=== PATIENT | female | born 2000 | race American Indian/Alaskan Native ===

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

== ENCOUNTER 2019-09-01 08:24 | Outpatient (CLI) | payer MEDICAID ==
[2019-09-01 08:43] VITALS: BP 124/70
[2019-09-01] MEDS ORDERED: LACTATED RINGERS 1,000 ML IV ONE (08:46)
[2019-09-01] MEDS ORDERED: TERBUTALINE 1 MG/1 ML INJ SUB-Q SCH (09:00)
[2019-09-01 09:16] LABS: Bacteria,Urine 3+ /HPF (Negative); Bilirubin,Urine NEG (Negative); Blood,Urine NEG (Negative); Color,Urine Yellow (Yellow); Mucus,Urine 2+ /HPF; Urobilinogen,Urine < 2.0 mg/dL (<2.0)
[2019-09-01] MEDS ORDERED: cefTRIAXone/NS 1 GM/50 ML 1 GM/50 ML BAG IV ONE (11:15)
== END 2019-09-01 11:21 | disposition home or self-care (01) ==
LOC: TRG 08:24
PROVIDERS: ATTEND Obstetrics & Gynecology
DX: O26.893 Other specified pregnancy related conditions, third trimester (principal); R25.2 Cramp and spasm; O47.03 False labor before 37 completed weeks of gestation, third trimester; Z3A.34 34 weeks gestation of pregnancy
CPT/HCPCS: 59025; 81001; 87086; 96361; 96365; J0696; J7120; 96360

== ENCOUNTER 2019-09-15 10:06 | Outpatient (CLI) | payer MEDICAID ==
[2019-09-15 10:41] VITALS: BP 136/63
[2019-09-15 11:28] LABS: Bacteria,Urine 2+ /HPF (Negative); Bilirubin,Urine NEG (Negative); Blood,Urine NEG (Negative); Color,Urine Yellow (Yellow); Mucus,Urine 3+ /HPF
[2019-09-15] MEDS ORDERED: LACTATED RINGERS 1,000 ML IV SCH (12:00)
[2019-09-15] MEDS ORDERED: cefTRIAXone/NS 1 GM/50 ML 1 GM/50 ML BAG IV SCH (12:44)
== END 2019-09-15 13:35 | disposition left against medical advice (07) ==
LOC: TRG 10:06
PROVIDERS: ATTEND Obstetrics & Gynecology
DX: O26.893 Other specified pregnancy related conditions, third trimester (principal); M54.2 Cervicalgia; Z3A.36 36 weeks gestation of pregnancy
CPT/HCPCS: 59025; 81001; J0696

== ENCOUNTER 2019-10-27 15:20 | Emergency (ER) | payer MEDICAID ==
[2019-10-27 15:46] VITALS: BP 121/61
--- NOTE | 2019-10-27 15:49 | Event Note ---
ED Screening Note Date of service: 10/27/19 Time: 15:45 ED Screening Note: 19 y s/p on 10/08/19 was sent here by [facility] for post depression Denies SI/HI This initial assessment/diagnostic orders/clinical plan/treatment(s) is/are subject to change based on patients health status, clinical progression and re- assessment by fellow clinical providers in the ED. Further treatment and workup at subsequent clinical providers discretion. Patient/guardian urged not to elope from the ED as their condition may be serious if not clinically assessed and managed. Initial orders include: psych ecal main ed
[2019-10-27 16:28] LABS: Bacteria,Urine 2+ /HPF (Negative); Bilirubin,Urine NEG (Negative); Blood,Urine LG (Negative); Color,Urine Yellow (Yellow); Urobilinogen,Urine < 2.0 mg/dL (<2.0)
[2019-10-27 16:30] LABS: WBC,Urine > 182.0 /HPF (0.0-6.0)
[2019-10-27 16:34] LABS: Amphetamine Screen,Urine PRESUMPTIVE NEGATIVE; Benzodiazepines Screen,Urine PRESUMPTIVE NEGATIVE; Cannabinoid Screen,Urine PRESUMPTIVE NEGATIVE; Cocaine Screen,Urine PRESUMPTIVE NEGATIVE; Methadone Screen,Urine PRESUMPTIVE NEGATIVE; Opiate Screen,Urine PRESUMPTIVE NEGATIVE
[2019-10-27 16:46] LABS: Basophils # (Auto) 0.1 K/mm3 (0.0-0.1); Eosinophils # (Auto) 0.2 K/mm3 (0.0-0.4); Eosinophils % (Auto) 1.7 % (0.0-4.3); Hemoglobin 12.6 gm/dl (10.1-14.3); Lymphocytes # (Auto) 1.8 K/mm3 (1.2-5.4); Lymphocytes % (Auto) 18.7 % (13.4-35.0); Monocytes # (Auto) 0.6 K/mm3 (0.0-0.8); Monocytes % (Auto) 6.2 % (0.0-7.3)
[2019-10-27 16:57] LABS: Hematocrit 38.8 % (30.3-42.9); Mean Corpuscular HGB Conc 32 % (30-34); Mean Corpuscular Volume 80 fl (79-97); Red Blood Count 4.85 M/mm3 (3.65-5.03); Red Cell Distribution Width 17.2 % (13.2-15.2)
[2019-10-27 16:58] LABS: Platelet Count 347 K/mm3 (140-440)
[2019-10-27 17:00] LABS: BUN/Creatinine Ratio 13; Blood Urea Nitrogen 9 mg/dL (7-17); Calcium 9.3 mg/dL (8.4-10.2); Hemolysis Index 7
== END 2019-10-27 20:37 | disposition left against medical advice (07) ==
LOC: EEVIPCON 15:20 → ED 15:20
DX: O99.345 Other mental disorders complicating the puerperium (principal); F32.9 Major depressive disorder, single episode, unspecified; Z53.21 Procedure and treatment not carried out due to patient leaving prior to being seen by health care provider
CPT/HCPCS: 36415; 80048; 80307; 80320; 81001; 82550; 83735; 84703; 85025; G0480